=== PATIENT | male | born 1995 | race African-American/Black ===

== ENCOUNTER 2021-02-24 09:28 | Emergency (ER) | payer SELFPAY ==
[~2021-02-24] VITALS: Ht 182.9 cm; Wt 75.0 kg
[2021-02-24 09:37] VITALS: BP 144/87
[2021-02-24] MEDS ORDERED: KETOROLAC 60MG/2ML VIAL IM STA (10:46)
[2021-02-24] MEDS ORDERED: SULF1TAB48 PO (11:08)
[2021-02-24] MEDS ORDERED: IBUP-2029 PO (11:08)
[2021-02-24] MEDS ORDERED: HYDR-4001 PO (11:08)
[2021-02-24] MEDS ORDERED: AMOX-424 MT (11:08)
== END 2021-02-24 11:38 | disposition home or self-care (01) ==
LOC: ER 10:37
DX: K04.7 Periapical abscess without sinus (principal); L03.211 Cellulitis of face
CPT/HCPCS: 96372; 99283; J1885